=== PATIENT | female | born 1955 | race Caucasian/White ===

== ENCOUNTER → 2016-08-24 | Outpatient (CLI) | payer BC ==
[2016-08-24 12:56] LABS: ALT/SGPT 44 U/L (12-78); AST/SGOT 21 U/L (15-37); BLOOD UREA NITROGEN 14 mg/dl (7-18); BUN/CREATININE RATIO 14.9 (10-20); CALCIUM 8.7 mg/dl (8.5-10.1); CARBON DIOXIDE 29 mmol/L (21-32); CHLORIDE 109 mmol/L (98-107); CHOLESTEROL 124 mg/dl (0-200); CREATININE 0.93 mg/dl (0.60-1.20); GLUCOSE 109 mg/dl (70-99); POTASSIUM 4.3 mmol/L (3.5-5.1); SODIUM 143 mmol/L (136-145)
[2016-08-24 12:58] LABS: ALB/GLOB RATIO 1.1 (0.9-2); ALKALINE PHOSPHATASE 54 U/L (45-117); CHOLESTEROL/HDL RATIO 3.2; HDL CHOLESTEROL 39 mg/dl; LDL CHOLESTEROL CALCULATED 63 mg/dl; TRIGLYCERIDES 111 mg/dl (0-150); VERY LOW DENSITY LIPOPROT CALC 22 mg/dl
[2016-08-24 13:38] LABS: ESTIMATED AVERAGE GLUCOSE 137 mg/dl; HA1C FLAG Normal (Normal)
== END | disposition home or self-care (01) ==
LOC: C.LABPBG 10:38
PROVIDERS: ATTEND Family Medicine
DX: N28.9 Disorder of kidney and ureter, unspecified (principal); I10 Essential (primary) hypertension; E11.9 Type 2 diabetes mellitus without complications; E78.5 Hyperlipidemia, unspecified

== ENCOUNTER → 2017-04-23 | Outpatient (CLI) | payer BC ==
[2017-04-23 12:17] LABS: ESTIMATED AVERAGE GLUCOSE 140 mg/dl; HA1C FLAG Normal (Normal)
[2017-04-23 12:32] LABS: ALT/SGPT 41 U/L (12-78); AST/SGOT 20 U/L (15-37); BLOOD UREA NITROGEN 21 mg/dl (7-18); CALCIUM 8.8 mg/dl (8.5-10.1); CARBON DIOXIDE 26 mmol/L (21-32); CHLORIDE 106 mmol/L (98-107); CHOLESTEROL 146 mg/dl (0-200); CREATININE 1.09 mg/dl (0.60-1.20); GLUCOSE 120 mg/dl (70-99); POTASSIUM 4.4 mmol/L (3.5-5.1); SODIUM 140 mmol/L (136-145)
[2017-04-23 12:44] LABS: ALKALINE PHOSPHATASE 69 U/L (45-117); CHOLESTEROL/HDL RATIO 3.8; HDL CHOLESTEROL 38 mg/dl; LDL CHOLESTEROL CALCULATED 78 mg/dl; THYROID STIMULATING HORMONE 0.966 uIu/ml (0.300-4.500); TRIGLYCERIDES 150 mg/dl (0-150); VERY LOW DENSITY LIPOPROT CALC 30 mg/dl
[2017-04-23 12:47] LABS: RATIO 11.9 mcg/mg (0-30.0)
== END | disposition home or self-care (01) ==
LOC: C.LABPBG 07:58
PROVIDERS: ATTEND Family Medicine
DX: I10 Essential (primary) hypertension (principal); E78.5 Hyperlipidemia, unspecified; E11.9 Type 2 diabetes mellitus without complications

== ENCOUNTER → 2017-05-24 | Outpatient (CLI) | payer BC ==
[2017-05-24 13:01] LABS: BLOOD UREA NITROGEN 23 mg/dl (7-18); BUN/CREATININE RATIO 18.6 (10-20); CALCIUM 9.1 mg/dl (8.5-10.1); CARBON DIOXIDE 30 mmol/L (21-32); CHLORIDE 100 mmol/L (98-107); CREATININE 1.23 mg/dl (0.60-1.20); GLUCOSE 294 mg/dl (70-99); POTASSIUM 3.7 mmol/L (3.5-5.1); SODIUM 135 mmol/L (136-145)
== END | disposition home or self-care (01) ==
LOC: C.LABPBG 08:45
PROVIDERS: ATTEND Family Medicine
DX: I10 Essential (primary) hypertension (principal)

== ENCOUNTER → 2017-06-18 | Outpatient (CLI) | payer BC, OTHER ==
[2017-06-18 17:39] LABS: BLOOD UREA NITROGEN 21 mg/dl (7-18); CALCIUM 9.9 mg/dl (8.5-10.1); CARBON DIOXIDE 31 mmol/L (21-32); CREATININE 1.18 mg/dl (0.60-1.20); GLUCOSE 99 mg/dl (70-99); POTASSIUM 4.1 mmol/L (3.5-5.1); SODIUM 138 mmol/L (136-145)
== END | disposition home or self-care (01) ==
LOC: C.LABPBG 15:34
PROVIDERS: ATTEND Family Medicine
DX: N28.9 Disorder of kidney and ureter, unspecified (principal)

== ENCOUNTER 2018-01-12 19:49 | Emergency (ER) | payer OTHER ==
[~2018-01-12] VITALS: Ht 165.1 cm; Wt 95.8 kg
[2018-01-12 19:53] VITALS: TEMP 36.6; Ht 165.1 cm; Wt 95.8 kg
[2018-01-12] MEDS ORDERED: ALBUT/IPRATROP 3MG/0.5MG NEB 3 ML VIAL INH STA (20:01)
[2018-01-12 20:31] LABS: BASO % 0.9 %; BASO ABS # 0.08 K/uL (0-0.2); EOS % 7.4 %; EOS ABS # 0.67 K/uL (0-0.5); HEMATOCRIT 42.4 % (37-47); HEMOGLOBIN 14.3 g/dL (12.0-16.0); IG# 0.03 K/uL (0.00-0.02); LYMPH % 19.3 %; LYMPH ABS # 1.75 K/uL (1.2-3.4); MEAN CELL VOLUME 94.6 fL (80-100); MEAN CORPUSCULAR HEMOGLOBIN 31.9 pg (25-34); MEAN CORPUSCULAR HGB CONC 33.7 g/dl (32-36); MEAN PLATELET VOLUME 10.3 fL (7.4-10.4); MONO % 8.9 %; MONO ABS # 0.81 K/uL (0.11-0.59); NEUT % 63.2 %; NEUT ABS # 5.75 K/uL (1.4-6.5); PLATELET COUNT 279 K/uL (130-400); RED CELL DISTRIBUTION WIDTH CV 13.8 % (11.5-14.5); RED CELL DISTRIBUTION WIDTH SD 47.4 fL (36.4-46.3); WHITE BLOOD COUNT 9.09 K/uL (4.8-10.8)
[2018-01-12 20:39] LABS: PTT PATIENT 21.9 SECONDS (21.0-31.0)
[2018-01-12 20:48] LABS: CALCIUM 8.9 mg/dl (8.5-10.1); CREATININE 1.08 mg/dl (0.60-1.20); POTASSIUM 3.9 mmol/L (3.5-5.1)
[2018-01-12] MEDS ORDERED: BUPR-267 PO (20:56)
[2018-01-12] MEDS ORDERED: GLC/500 PO (20:56)
[2018-01-12] MEDS ORDERED: RANI150T85 PO (20:56)
[2018-01-12] MEDS ORDERED: CETI10TA84 PO (20:56)
[2018-01-12] MEDS ORDERED: ATOR10TA82 PO (20:56)
[2018-01-12] MEDS ORDERED: ASPI81TA28 PO (20:56)
[2018-01-12] MEDS ORDERED: DICL-201 PO (20:56)
[2018-01-12] MEDS ORDERED: AMLO5TAB3 PO (20:58)
--- NOTE | 2018-01-12 20:58 | DIAGNOSTIC IMAGING REPORT ---
CHEST ONE VIEW PORTABLE CLINICAL HISTORY: Shortness of breath. Evaluate for pneumonia. COMPARISON STUDY: No previous studies for comparison. FINDINGS: Lung volumes are normal. There is no pneumothorax or pleural effusion. Minimal bibasilar opacities suggest atelectasis. No consolidation is identified. There is no evidence for pulmonary edema. Cardiomediastinal silhouette is normal. IMPRESSION: 1. No acute cardiopulmonary findings. 2. Mild bibasilar opacities suggestive of atelectasis. Electronically signed by: Jadon Heck M.D. 01/12/2018 8:56 PM Dictated Date/Time: 01/12/2018 8:54 PM
[2018-01-12 21:05] VITALS: O2SAT 94
[2018-01-12] MEDS ORDERED: OPTIRAY 320 IV PRN (21:30)
--- NOTE | 2018-01-12 22:22 | DIAGNOSTIC IMAGING REPORT ---
CT ANGIOGRAPHY OF THE CHEST, PULMONARY EMBOLUS PROTOCOL CLINICAL HISTORY: Hypoxia. COMPARISON STUDY: Chest radiograph January 12, 2018. TECHNIQUE: Following IV administration of 108 mL of Optiray-320, helical axial images of the chest were obtained utilizing the pulmonary embolus protocol. Maximal intensity projections and sagittal and coronal reformats were viewed on an independent 3D workstation. IV contrast was administered without complication. A dose lowering technique was utilized adhering to the principles of ALARA. CT DOSE: 589.04 mGy.cm FINDINGS: No pulmonary emboli are identified although the segmental and subsegmental pulmonary arteries are suboptimally assessed due to respiratory motion. There is moderate coronary artery calcification. Size of the heart is at the upper limits of normal. There is no pericardial effusion. A small hiatal hernia is noted. No enlarged thoracic lymph nodes are present. There is no consolidation to suggest pneumonia. There is mild mucus plugging within the left lower lobe with bronchial wall thickening. There is no pneumothorax or pleural effusion. Bony thorax is unremarkable. Fatty infiltration of the liver is noted. IMPRESSION: 1. No pulmonary emboli identified although segmental and subsegmental pulmonary arteries suboptimally assessed due to respiratory motion. 2. No consolidation to suggest pneumonia. Mild mucus plugging within the left lower lobe with bronchial wall thickening. 3. Small hiatal hernia. 4. Fatty liver. 5. Moderate coronary artery calcification. Electronically signed by: Jadon Heck M.D. 01/12/2018 10:21 PM Dictated Date/Time: 01/12/2018 10:14 PM
[2018-01-12] MEDS ORDERED: DOXY100C2 PO (22:57)
[2018-01-12] MEDS ORDERED: DOXYCYCLINE HYCLATE 100 MG CAP PO ONE (23:00)
[2018-01-12] MEDS ORDERED: ALBUTEROL HFA 8 GM INHALER INH ONE (23:00)
[2018-01-12 23:17] VITALS: BP 137/68; PULSE 97; O2SAT 91
--- NOTE | 2018-01-12 23:36 | EMERGENCY ROOM VISIT NOTE ---
History Report prepared by Eri: Gerald Torres Under the Supervision of: Dr. Geraldo Kaba M.D. First contact with patient: 19:56 Chief Complaint: RESPIRATORY PROBLEMS Stated Complaint: TROUBLE BREATHING History of Present Illness The patient is a 62 year old female with a history of HTN and Bronchitis who continues to smoke 1 pack per week who presents to the Emergency Room with complaints of shortness of breath since this afternoon. The patient denies a history of COPD, Asthma, or Heart Failure. The patient states the past x2 days she has had a cold, including a non-productive cough and some sweating. She notes today she has laid on the couch most of the day. She notes when she got a shower this afternoon she started to feel short of breath, and also started to have swelling again in the shower. She states she does not have chest pain or discomfort, vomiting, a fever, leg pain or swelling, and has never had to use oxygen before. Source of History: patient Onset: few hours Symptom Intensity: moderate Quality: other (no pain, just short of breath) Timing: constant Associated Symptoms: + cough, No fevers, No chills, No chest pain, No nausea , No vomiting Note: no leg pain or swelling Review of Systems See HPI for pertinent positives & negatives. A total of 10 systems reviewed and were otherwise negative. Constitutional: + sweats, No fever, No chills Respiratory: + cough, + shortness of breath Cardiovascular: No chest pain, No edema Abdomen: No vomiting Musculoskeletal: + problem reported (no leg pain) Past Medical & Surgical Medical Problems: (1) No Known Active Medical Problems Family History Patient reports no known family medical history. Social History Smoking Status: Current Every Day Smoker Current/Historical Medications Scheduled Amlodipine (Norvasc), 1 TAB PO DAILY Aspirin (Aspirin Ec), 81 MG PO DAILY Atorvastatin (Lipitor), 10 MG PO DAILY Bupropion Hcl (Bupropion Hcl Er), 150 MG PO BID Cetirizine (Zyrtec), 10 MG PO DAILY Diclofenac (Voltaren), 75 MG PO BID Doxycycline Hyclate (Vibramycin), 100 MG PO BID Metformin Hcl (Glucophage), 500 MG PO BID Ranitidine (Zantac), 150 MG PO DAILY Allergies Coded Allergies: No Known Allergies (Unverified , 01/12/18) Physical Exam Vital Signs Date Time Temp Pulse Resp B/P (MAP) Pulse Ox O2 Delivery O2 Flow Rate FiO2 01/12/18 23:17 97 18 137/68 91 01/12/18 22:47 88 Room Air 01/12/18 21:05 94 Nasal Cannula 2.0 01/12/18 21:05 88 Room Air 01/12/18 21:04 94 Nasal Cannula 2.0 01/12/18 20:26 96 01/12/18 20:19 93 Room Air 01/12/18 19:53 36.6 108 18 168/81 87 Room Air Physical Exam Constitutional: Vital signs reviewed. Eyes: Pupils are equal round reactive to light. Conjunctiva are noninjected. ENT: Pharynx is clear without erythema or exudate. Mucous membranes are moist. Neck supple without meningeal signs. Respiratory: Diffuse wheezing bilaterally. Breath sounds are equal bilaterally. Cardiovascular: Regular rate and rhythm. No rubs or gallops. GI: Soft, nondistended and nontender. Bowel sounds are present. Musculoskeletal: No peripheral edema. No lower extremity tenderness. Integumentary: No cyanosis. Neurological: The patient is awake and alert. No focal deficits. Psychiatric: Normal affect. Medical Decision & Procedures ER Provider Diagnostic Interpretation: CT ANGIOGRAPHY OF THE CHEST, PULMONARY EMBOLUS PROTOCOL CLINICAL HISTORY: Hypoxia. COMPARISON STUDY: Chest radiograph January 12, 2018. TECHNIQUE: Following IV administration of 108 mL of Optiray-320, helical axial images of the chest were obtained utilizing the pulmonary embolus protocol. Maximal intensity projections and sagittal and coronal reformats were viewed on an independent 3D workstation. IV contrast was administered without complication. A dose lowering technique was utilized adhering to the principles of ALARA. CT DOSE: 589.04 mGy.cm FINDINGS: No pulmonary emboli are identified although the segmental and subsegmental pulmonary arteries are suboptimally assessed due to respiratory motion. There is moderate coronary artery calcification. Size of the heart is at the upper limits of normal. There is no pericardial effusion. A small hiatal hernia is noted. No enlarged thoracic lymph nodes are present. There is no consolidation to suggest pneumonia. There is mild mucus plugging within the left lower lobe with bronchial wall thickening. There is no pneumothorax or pleural effusion. Bony thorax is unremarkable. Fatty infiltration of the liver is noted. IMPRESSION: 1. No pulmonary emboli identified although segmental and subsegmental pulmonary arteries suboptimally assessed due to respiratory motion. 2. No consolidation to suggest pneumonia. Mild mucus plugging within the left lower lobe with bronchial wall thickening. 3. Small hiatal hernia. 4. Fatty liver. 5. Moderate coronary artery calcification CHEST ONE VIEW PORTABLE CLINICAL HISTORY: Shortness of breath. Evaluate for pneumonia. COMPARISON STUDY: No previous studies for comparison. FINDINGS: Lung volumes are normal. There is no pneumothorax or pleural effusion. Minimal bibasilar opacities suggest atelectasis. No consolidation is identified. There is no evidence for pulmonary edema. Cardiomediastinal silhouette is normal. IMPRESSION: 1. No acute cardiopulmonary findings. 2. Mild bibasilar opacities suggestive of atelectasis. Laboratory Results 01/12/18 20:12 Red Blood Count 4.48, Mean Corpuscular Volume 94.6, Mean Corpuscular Hemoglobin 31.9, Mean Corpuscular Hemoglobin Concent 33.7, Mean Platelet Volume 10.3, Neutrophils (%) (Auto) 63.2, Lymphocytes (%) (Auto) 19.3, Monocytes (%) (Auto) 8.9, Eosinophils (%) (Auto) 7.4, Basophils (%) (Auto) 0.9, Neutrophils # (Auto) 5.75, Lymphocytes # (Auto) 1.75, Monocytes # (Auto) 0.81, Eosinophils # (Auto) 0.67, Basophils # (Auto) 0.08 01/12/18 20:12 Test 01/12/18 20:12 01/12/18 20:18 White Blood Count 9.09 K/uL (4.8-10.8) Red Blood Count 4.48 M/uL (4.2-5.4) Hemoglobin 14.3 g/dL (12.0-16.0) Hematocrit 42.4 % (37-47) Mean Corpuscular Volume 94.6 fL (80-100) Mean Corpuscular Hemoglobin 31.9 pg (25-34) Mean Corpuscular Hemoglobin Concent 33.7 g/dl (32-36) Platelet Count 279 K/uL (130-400) Mean Platelet Volume 10.3 fL (7.4-10.4) Neutrophils (%) (Auto) 63.2 % Lymphocytes (%) (Auto) 19.3 % Monocytes (%) (Auto) 8.9 % Eosinophils (%) (Auto) 7.4 % Basophils (%) (Auto) 0.9 % Neutrophils # (Auto) 5.75 K/uL (1.4-6.5) Lymphocytes # (Auto) 1.75 K/uL (1.2-3.4) Monocytes # (Auto) 0.81 K/uL (0.11-0.59) Eosinophils # (Auto) 0.67 K/uL (0-0.5) Basophils # (Auto) 0.08 K/uL (0-0.2) RDW Standard Deviation 47.4 fL (36.4-46.3) RDW Coefficient of Variation 13.8 % (11.5-14.5) Immature Granulocyte % (Auto) 0.3 % Immature Granulocyte # (Auto) 0.03 K/uL (0.00-0.02) Prothrombin Time 10.6 SECONDS (9.0-12.0) Prothromb Time International Ratio 1.0 (0.9-1.1) Activated Partial Thromboplast Time 21.9 SECONDS (21.0-31.0) Partial Thromboplastin Ratio 0.8 Anion Gap 6.0 mmol/L (3-11) Est Creatinine Clear Calc Drug Dose 61.0 ml/min Estimated GFR () 63.3 Estimated GFR (Non- 54.6 BUN/Creatinine Ratio 16.5 (10-20) Calcium Level 8.9 mg/dl (8.5-10.1) Bedside Troponin I < 0.030 ng/ml (0-0.045) Medications Administered Medications (Trade) Dose Ordered Sig/Denita Route Start Time Stop Time Status Last Admin Dose Admin Albuterol/ Ipratropium (Duoneb) 3 ml NOW STAT INH 01/12/18 20:01 01/12/18 20:03 DC 01/12/18 20:23 3 ML Albuterol (Ventolin Hfa Inhaler) 2 puffs NOW ONCE INH 01/12/18 23:00 01/12/18 23:01 DC 01/12/18 23:11 2 PUFFS Doxycycline Hyclate (Vibramycin Cap) 100 mg ONE ONCE PO 01/12/18 23:00 01/12/18 23:01 DC 01/12/18 23:11 100 MG ECG Per My Interpretation Indication: SOB/dyspnea Rate (beats per minute): 99 Rhythm: normal sinus Findings: other (no ST elevations or PVCs) Comparison ECG Date: no prior available ED Course Rechecks: 2121- Patient is feeling much better. Her pulse ox is 94% on 2L nasal canula, and her wheezing is diminished. She agrees to have a CT of the chest completed. 2233- Patient is doing much better. She has no wheezing on examination. Patient was removed from oxygen. 2255- Pulse ox is 92% on room air. She drops to 88% when she ambulates, but when doing so denies getting short of breath.On exam her lungs are clear except for minimal wheezing at the left base. I offered admission for the patient based off of this, but she refused. She states she will follow up with her PCP Dr. Talley tomorrow. She also is requesting antibiotics for her bronchitis. Medical Decision This is a 62-year-old female presents with cough and shortness of breath. Differential diagnosis includes pneumonia, bronchitis, COPD, asthma, pulmonary embolism. I did perform a limited focused review of portions of the patient's old chart on the electronic medical record. The patient has had no recent pertinent visits to this hospital. I did evaluate the patient as noted above. IV access was established. The patient was placed on a continuous monitor technician. The patient is hypoxemic on room air. She was placed on supplemental oxygen. She is wheezing diffusely and was given a DuoNeb. I did order and personally review the patient's 12- lead EKG and chest x-ray as described above. Chest x-ray shows atelectasis without any pneumonia. Blood cultures were ordered. I did order and review the patient's blood work as noted in the electronic medical record. Troponin is negative. Her white blood cell count is not elevated. I did reassess the patient. Her wheezing is significantly diminished and she feels better. Her pulse ox did remain on the lower side and I did recommend further testing with CT scanning. She did agree. I did order a CT of the chest. I did review the images myself as well as the radiology report as described above. There is no evidence of pulmonary embolism. There is no consolidation or pneumonia. She does have evidence of bronchitis. I did reassess the patient again. Her lungs are clear to auscultation. She states she feels fine. She is no longer short of breath. We did do an ambulatory trial in which her pulse ox went down to 88 with ambulation, although the patient states that she was not short of breath when this occurred. Her room air pulse ox at rest is 92. In light of this I did recommend hospitalization for further evaluation of her symptoms and treatment with oxygen. The patient refused admission. She states she really did not want to stay in the hospital and wanted to go home. She states that she would follow-up with her doctor tomorrow. She was therefore given an albuterol MDI and discharged with a prescription for doxycycline. She will follow-up with her doctor tomorrow return for any worsening symptoms. Medication Reconcilliation Current Medication List: was personally reviewed by me Blood Pressure Screening Patient's blood pressure: Elevated blood pressure Blood pressure disposition: Referred to PCP Impression Primary Impression: Hypoxia Additional Impressions: Bronchospasm Bronchitis Scribe Attestation The scribe's documentation has been prepared under my direct and personally reviewed by me in its entirety. I confirm that the note above accurately reflects all work, treatment, procedures, and medical decision making performed by me. Departure Information Dispostion Home / Self-Care Prescriptions Doxycycline Hyclate (VIBRAMYCIN) 100 Mg Cap 100 MG PO BID for 10 Days, #20 CAP Prov: Geraldo Kaba M.D. 01/12/18 Referrals Lianne Talley DO (PCP) Forms HOME CARE DOCUMENTATION FORM, IMPORTANT VISIT INFORMATION, WORK / SCHOOL INSTRUCTIONS Patient Instructions My [facility] Problem Qualifiers
== END 2018-01-12 23:17 | disposition home or self-care (01) ==
LOC: C.EDB 19:50 → C.EDA 23:17
DX: R09.02 Hypoxemia (principal); J98.01 Acute bronchospasm; I10 Essential (primary) hypertension; J40 Bronchitis, not specified as acute or chronic; J98.11 Atelectasis; F17.200 Nicotine dependence, unspecified, uncomplicated; Z79.82 Long term (current) use of aspirin; Z79.84 Long term (current) use of oral hypoglycemic drugs; Z79.899 Other long term (current) drug therapy